=== PATIENT | female | born 1955 | race Caucasian/White ===

== ENCOUNTER → 2017-03-15 | Outpatient (CLI) | payer OTHER ==
[~2017-03-15] MED LIST: ABILIFY PO; AMLODIPINE BESYL5 MG; ATENOLOL PO; CLARITIN10 MG PO; COMBIVENT INH14.7 GM INH; DOXYCYCLINE PO; GLUCOTROL; GLUCOTROL PO; LIPITOR PO; LISINOPRIL; LISINOPRIL PO; METFORMIN; METFORMIN PO; ONGLYZA2.5 MG; PREDNISONE PO; SEROQUEL PO; TEGRETOL PO; VISTARIL PO; [UNRECOGNIZED DRUG - REMARK]
--- NOTE | ~2017-03-15 | CR63 ---
[facility] A Service of [facility] & [facility] RADIOLOGY TEXT RESULTS PATIENT: FLORIAN ACOSTA LOCATION: [facility] : 53 UNIT #: [id number] AGE: [address]: Jonnie Torres MD SEX: F ORDER DR: [id number] [address] [address] [id number] O MR#: [id number] Acc #: [id number] NAME: FLORIAN ACOSTA : 1955 SEX: F STUDY DATE/TIME: 03/15/2017 10:43 UNIT: [facility] ROOM: STUDY DESCRIPTION: CR Chest 2 View Attending Physician: Jonnie Torres M.D. Referring Physician: Jonnie Torres M.D. Ordering Physician: Jonnie Torres M.D. Primary Care Physician: Jonnie Torres M.D. MEDICAL IMAGING REPORT This report is preliminary unless electronic signature is present. EXAM Chest PA and lateral 03/15/2017 COMPARISON STUDIES 07/11/2016 HISTORY Chronic cough. History of wheezing, congested lungs beginning 2 weeks ago FINDINGS PA and lateral views of the chest are obtained. The heart size is normal. Left hemidiaphragm now appears slightly elevated. The vascular markings in the chest are normal. No acute infiltrates are seen. CONCLUSION Mild elevation of the left hemidiaphragm. Otherwise negative chest. Dictated by... Roger Sam M.D. THIS IS AN ELECTRONICALLY VERIFIED REPORT Roger Sam M.D. at 03/16/2017 4:41 PM Holly TD: 03/15/2017 13:13 JOB #: [id number] MEDICAL IMAGING REPORT Page 1 of 1
== END | disposition home or self-care (01) ==
LOC: SRAD 10:34
DX: R05 Cough (principal); J98.6 Disorders of diaphragm
CPT/HCPCS: 71020

== ENCOUNTER 2017-04-09 13:25 | Emergency (ER) | payer OTHER ==
--- NOTE | ~2017-04-09 | EKG ---
PATIENT: FLORIAN ACOSTA UNIT #: [id number] Ventricular Rate: 97 BPM Atrial Rate: 97 BPM P-R Interval: 174 ms QRS Duration: 98 ms Q-T Interval: 344 ms QTC Calculation(Bezet): 436 ms P [place]: 63 degrees Calculated R [place]: 31 degrees Calculated T [place]: 52 degrees Diagnosis Line: Normal sinus rhythm Diagnosis Line: Possible Anterior infarct , age undetermined Diagnosis Line: Abnormal ECG Diagnosis Line: No previous ECGs available Diagnosis Line: Confirmed by ROSALINE MEANS MD ([id number]) on Diagnosis Line: 04/11/2017 10:51:14 AM INTERPRETING MD: MIGUELANGEL RED
--- NOTE | ~2017-04-09 | CR72 ---
[facility]. [facility] A Service of [facility] & [facility] RADIOLOGY TEXT RESULTS PATIENT: FLORIAN ACOSTA LOCATION: SED : 53 UNIT #: [id number] AGE: [address]: Yarely Harvey MD SEX: F ORDER DR: [id number] [address] [address] [id number] MR#: [id number] Acc #: [id number] NAME: FLORIAN ACOSTA : 1955 SEX: F STUDY DATE/TIME: 04/09/2017 14:06 UNIT: SED ROOM: STUDY DESCRIPTION: CR Chest Single View Portable Attending Physician: Yarely Harvey M.D. Ordering Physician: Yarely Harvey M.D. Primary Care Physician: Jonnie Torres M.D. MEDICAL IMAGING REPORT This report is preliminary unless electronic signature is present. EXAM Portable chest x-ray HISTORY Chest pains, palpitations for 2 weeks. History of smoking for 10 years. AP radiograph of the chest is presented. COMPARISON STUDIES Comparison 03/15/2017. FINDINGS Heart upper limits of normal in size. Evidence of mitral annular calcifications. The lungs are well inflated without evidence of acute pulmonary disease. There is no pleural effusion or pneumothorax. No suspicious nodule. No acute bony abnormality. Dictated by... Roger Rivera M.D. THIS IS AN ELECTRONICALLY VERIFIED REPORT Roger Rivera M.D. at 04/12/2017 8:26 AM Alex TD: 04/09/2017 16:23 JOB #: [id number] MEDICAL IMAGING REPORT Page 1 of 1
[~2017-04-09 13:25] MED LIST changes: -AMLODIPINE BESYL5 MG; -GLUCOTROL; -LISINOPRIL; -METFORMIN; -ONGLYZA2.5 MG
[2017-04-09] MEDS ORDERED: AMLODIPINE BESYL5 MG (13:49)
[2017-04-09] MEDS ORDERED: LISINOPRIL (13:49)
[2017-04-09 14:05] LABS: BASOPHIL% 0.4 % (0-2.5); EOSINOPHIL# 0.1 X10e3 (0-0.7); EOSINOPHIL% 1.1 % (0.0-7.0); HEMATOCRIT 29.2 % (35.0-45.0); LYMPHOCYTE# 1.3 X10e3 (1.0-3.5); LYMPHOCYTE% 10.1 % (17.0-45.0); MEAN CELL VOLUME 87.4 FL (83-96); MEAN CORPUSCULAR HEMOGLOBIN 29.8 PG (28-34); MEAN CORPUSCULAR HGB CONC 34.1 g/dL (30-36); MEAN PLATELET VOLUME 7.3 FL (6.5-11.5); MONOCYTE# 1.3 X10e3 (0-1.0); MONOCYTE% 9.8 % (3.0-12.0); NEUTROPHIL# 10.2 X10e3 (1.5-7.1); NEUTROPHIL% 78.6 % (40-75); PLATELET COUNT 311 X10e3 (140-420); RED BLOOD COUNT 3.34 X10e (3.90-5.30); RED CELL DISTRIBUTION WIDTH 14.5 % (11.0-15.5); WHITE BLOOD COUNT 12.9 X10e3 (4.0-10.5)
[2017-04-09 14:15] LABS: DIFF IND NO
[2017-04-09 14:25] LABS: ALBUMIN SERUM 2.1 g/dL (3.5-5.0); ALKALINE PHOSPHATASE 129 U/L (32-92); ALT (SGPT) 12 U/L (10-40); AST (SGOT) 20 U/L (10-42); BILIRUBIN,TOTAL 0.1 mg/dL (0.2-2.0); BLOOD UREA NITROGEN 26 mg/dL (9-23); CARBON DIOXIDE 19 mmol/L (22-31); CHLORIDE 102 mmol/L (100-111); CREATININE SERUM 1.3 mg/dL (0.6-1.4); GLOM FILT RATE Estimated 43.6 mL/min (>60); GLUCOSE FASTING 101 mg/dL (70-110); POTASSIUM 4.4 mmol/L (3.5-5.1); PROTEIN TOTAL SERUM 6.7 g/dL (6.0-8.3); SODIUM 128 mmol/L (135-145)
[2017-04-09 14:40] LABS: URINE SOURCE CLEAN CATCH
[2017-04-09 14:47] LABS: BILIRUBIN, DIRECT <0.1 mg/dL (0.0-0.2)
[2017-04-09 15:14] LABS: MICRO INDICATED? YES; URINE APPEARANCE CLEAR; URINE BILIRUBIN NEG (NEG); URINE BLOOD TRACE-LYSED (NEG); URINE COLOR YELLOW; URINE GLUCOSE NEG (NORM); URINE KETONE NEG (NEG); URINE LEUKOCYTE ESTERASE NEG (NEG); URINE NITRATE NEG (NEG); URINE PH 5.5 (5-8); URINE PROTEIN 2+ (NEG); URINE UROBILINOGEN 0.2 MG/DL (NORM)
[2017-04-09 15:49] LABS: URINE BACTERIA NEG (NEG); URINE RBC 0-2 /[HPF] (0-2); URINE WBC 0-2 /[HPF] (0-5)
[2017-04-09 15:50] LABS: CULTURE INDICATED? NO; URINE SQUAMOUS EPITHELIAL CELL OCCAS /[HPF]
[2017-04-09 16:06] LABS: POC - CKMB 6.9 ng/mL (0.0-7.9)
[2017-04-09 16:07] LABS: POC - TROPONIN 0.29 ng/mL (<=0.05)
[2017-04-09] MEDS ORDERED: ONGLYZA2.5 MG (16:30)
[2017-04-09] MEDS ORDERED: METFORMIN (16:30)
[2017-04-09] MEDS ORDERED: GLUCOTROL (16:30)
[2017-04-09 16:53] LABS: POC - CKMB 5.5 ng/mL (0.0-7.9); POC - TROPONIN 0.26 ng/mL (<=0.05)
== END 2017-04-09 18:00 ==
LOC: SED 13:25
PROVIDERS: Student in an Organized Health Care Education/Training Program
DX: I21.4 Non-ST elevation (NSTEMI) myocardial infarction (principal); J44.1 Chronic obstructive pulmonary disease with (acute) exacerbation; E11.9 Type 2 diabetes mellitus without complications; F17.200 Nicotine dependence, unspecified, uncomplicated; Z79.84 Long term (current) use of oral hypoglycemic drugs; Z79.899 Other long term (current) drug therapy; Z91.040 Latex allergy status
CPT/HCPCS: 36415; 71010; 80048; 80076; 81003; 82553; 83880; 84484; 85025; 93005; 94640; 96374; 99291; J1650; J2930